=== PATIENT | male | born 1960 | race African-American/Black ===

== ENCOUNTER 2018-04-14 09:30 | Emergency (ER) | payer MEDICAID ==
[~2018-04-14] VITALS: Ht 172.7 cm; Wt 82.6 kg
--- NOTE | 2018-04-14 10:10 | NUR ---
ED Nurse Note: Patient presents to ER due to abnormal feeling, tightness over the left sided upper abdomen over 1-2 years. Patient states 'it goes up and down, now it's gone', pointing left upper abdomen area. No bulging area noted. Reports no N/V/D. Patient consumed breakfast without problem today. Seen by PCP about 1 1/2 weeks ago for the same complaints. No facial grimacing or guarding noted. Ambulated to the room with steady gait.
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
[2018-04-14] MEDS ORDERED: PEPCID AC20 M2 PO (10:13)
[2018-04-14 10:18] VITALS: BP 122/77
--- NOTE | 2018-04-14 10:19 | NUR ---
ED Nurse Note: Patient is being discharged from medical care. D/C insturction and prescription given. All questions were answered. Patient ambulated out with steady gait with all his belongings.
== END 2018-04-14 10:21 | disposition home or self-care (01) ==
LOC: EMR 10:10
DX: K46.9 Unspecified abdominal hernia without obstruction or gangrene (principal); K21.0 Gastro-esophageal reflux disease with esophagitis; I10 Essential (primary) hypertension; F17.200 Nicotine dependence, unspecified, uncomplicated; Z86.73 Personal history of transient ischemic attack (TIA), and cerebral infarction without residual deficits
CPT/HCPCS: 99282